=== PATIENT | male | born 1960 | race Caucasian/White ===

== ENCOUNTER → 2021-04-21 15:19 | Outpatient (BNVA) | payer OTHER, SELFPAY | PROVIDERS: PCP Internal Medicine; Visit Provider Urology | DX: R97.20 Elevated prostate specific antigen [PSA] (principal) ==

== ENCOUNTER 2022-04-10 09:25 | Outpatient (REF) | payer OTHER, SELFPAY ==
[2022-04-10 10:59] LABS: Prostate Specific Antigen 2.76 ng/mL (<0.05-4.0)
== END 2022-04-10 09:26 | disposition home or self-care (01) ==
LOC: HO.LAB 09:25
PROVIDERS: Visit Provider Urology
DX: Z12.5 Encounter for screening for malignant neoplasm of prostate (principal); N13.8 Other obstructive and reflux uropathy; N40.1 Benign prostatic hyperplasia with lower urinary tract symptoms; R97.20 Elevated prostate specific antigen [PSA]
CPT/HCPCS: 36415; 84153

== ENCOUNTER → 2022-04-21 15:28 | Outpatient (BNVA) | payer OTHER, SELFPAY | PROVIDERS: PCP Internal Medicine; Visit Provider Urology | DX: N40.1 Benign prostatic hyperplasia with lower urinary tract symptoms (principal); R33.9 Retention of urine, unspecified; R97.20 Elevated prostate specific antigen [PSA] | CPT/HCPCS: 51798 ==

== ENCOUNTER 2022-12-01 16:15 | Outpatient (REF) | payer OTHER, SELFPAY ==
[2022-12-01 19:04] LABS: Prostate Specific Antigen 3.46 ng/mL (<0.05-4.0)
== END 2022-12-01 16:16 | disposition home or self-care (01) ==
LOC: HO.LAB 16:15
PROVIDERS: Visit Provider Urology
DX: R97.20 Elevated prostate specific antigen [PSA] (principal); Z12.5 Encounter for screening for malignant neoplasm of prostate
CPT/HCPCS: 36415; 84153

== ENCOUNTER → 2022-12-09 08:42 | Outpatient (BNVA) | payer OTHER, SELFPAY | PROVIDERS: PCP Internal Medicine; Visit Provider Urology ==

== ENCOUNTER 2023-02-01 07:12 | Outpatient (REF) | payer OTHER, SELFPAY ==
[2023-02-01 07:44] VITALS: BMI 27.6
[2023-02-01 07:46] VITALS: BP 167/107; PULSE 104; RESP 16; TEMP 36.6; O2SAT 96
--- NOTE | 2023-02-01 08:19 | W.PM.OPN ---
Operative Note Operative Note Date of Service: 02/01/23 Narrative: Preoperative diagnosis: Elevated PSA Postoperative diagnosis: Elevated PSA Procedure: 1. transrectal ultrasound measurement of prostate 2. transrectal ultrasound-guided pudendal nerve block 3. transrectal ultrasound-guided prostate biopsy 12 core Surgeon: Dr. Sancho Shepard Anesthetic: Local Indications for procedure: Elevated PSA - 3.5 on finasteride Procedure: After informed consent was verified, the patient was brought into the procedure area and lay left-hand side down on the table. Patient identity confirmed. Perioperative antibiotics confirmed. Safety pause time out performed. CHRISTIANE performed to dilate rectal sphincter Iodine 10cc with Gel was placed per rectum Ultrasound probe was placed per rectum The prostate was measured in 3 dimensions Total volume equals 30 gm No cystic structures were noted Calcifications were noted at the surgical margin The prostate was otherwise homogeneous in nature An ultrasound-guided pudendal nerve block was performed using 10 cc of 1% lidocaine. 8 cc was placed at the base and 2 cc of the apex. A 12 core biopsy was performed with 6 cores each side. Two cores were taken at the apex, mid and base. Cores were spaced between lateral and medial. He tolerated the procedure well. Was able to ambulate to bathroom after 5 minutes. Printed instructions regarding antibiotic use and common side effects such as low-grade temperature, potential infection and bleeding were given Pathology: 12 core prostate biopsy.
[2023-02-01 08:23] VITALS: BP 139/80; PULSE 74; RESP 16; O2SAT 98
== END 2023-02-01 07:13 | disposition home or self-care (01) ==
LOC: HO.MS 07:12
PROVIDERS: Visit Provider Urology
PROC: (CPT 55700; principal; 2023-02-01 08:00)
DX: C61 Malignant neoplasm of prostate (principal); R97.20 Elevated prostate specific antigen [PSA]
CPT/HCPCS: 55700; 76942; 88305; 88344

== ENCOUNTER → 2023-02-01 07:12 | Outpatient (BNV) | payer OTHER, SELFPAY | PROVIDERS: Visit Provider Urology | DX: R97.20 Elevated prostate specific antigen [PSA] (principal) | CPT/HCPCS: 76872; 76942 ==

== ENCOUNTER 2023-02-15 13:50 | Outpatient (AMB) | payer OTHER, SELFPAY ==
--- NOTE | 2023-02-15 13:52 | MHC.OFFVIS ---
Intake Intake Visit Reasons: Biopsy results Allergies No Known Allergies Allergy (Verified 12/09/22 09:03) Medication List - Last Reconciled 02/15/23 by Sancho Shepard MD finasteride 5 mg PO DAILY 90 days levofloxacin 500 mg PO daily 3 days lisinopril 5 mg PO DAILY pravastatin 20 mg PO DAILY HPI HPI Comments History of Present Illness Details Bridger HESS is a very pleasant male. He is a patient of Dr. Spencer. He is seen today for the following urologic conditions. - elevated PSA - lower urinary tract symptoms Telemedicine Evaluation 15 min Consultation [employer] Maisha Video attempted Discussed results Trace of prostate cancer Plan for deferred therapy 3 month follow-up PSA and MRI Adenocarcinoma, acinar type Histologic grade: Nick score: 3+3=6 Tumor quantitation: Number cores positive:1 Total number of cores: 12 % of tissue involved:<5% of needle core Periprostatic fat inv.:Not identified Seminal vesicle inv.: Not identified Perineural inv.: Not identified LVI:Not identified Elevated PSA/Abnormal CHRISTIANE:?Improvement in urinary symptoms. Less weak stream less nocturia. ?He presents for? further evaluation of elevated PSA.?Current management is finasteride ?Laboratory investigations include 01/09 3.6 ? 01/10 4.7, 05/12 2.5, 04/14 2.4, 04/15 2.8, 12/14 3.5 ? Individualized Prostate Cancer Risk Calculator 5-10% high risk, Discussion regarding TRUS biopsy performed, Discussed use of 5AR to help differentiate prostate cancer from benign disease. He would like to try this and understands the small risk associated with a delay in diagnosis.?Symptoms include 02/09 , incomplete emptying, weak stream, nocturia, x 2, and are worsening.?Overall symptoms are mild.?Therapeutic plan will be review in 12 months [facility] Medical History Elevated PSA Hyperlipidemia OA (osteoarthritis) Weak urinary stream Surgical History History of surgery Review of Systems Const All systems reviewed & are unremarkable except as noted in HPI and below Reports no additional complaints Resp Reports no additional complaints GI Reports no additional complaints Reports as per HPI Musc Reports no additional complaints Physical Exam Telemedicine evaluation Appropriate responses Regular breathing rate and rhythm HEENT Head: Yes normal to inspection Ears: hearing grossly normal bilaterally Eyes General: appearance normal, both eyes and all related structures Neck Neck: Yes normal visual inspection Chest Chest palpation & inspection: normal inspection of the chest Resp Effort & Inspection: normal respiratory effort and able to speak in complete sentences Assessment & Plan Assessment & Plan (1) Prostate cancer: Code(s): C61 - Malignant neoplasm of prostate Plan Three month follow-up Orders: Orders Blood Urea Nitrogen 3 Months C61 - Malignant neoplasm of prostate Creatinine 3 Months C61 - Malignant neoplasm of prostate Prostate Specific Antigen 3 Months C61 - Malignant neoplasm of prostate MR pelvis wo/w con 3 Months C61 - Malignant neoplasm of prostate Patient Instructions: Imaging studies, laboratory and physical exam results were discussed and reviewed in detail. No major barriers to patient understanding were identified. An opportunity to ask questions regarding the treatment plan was provided. All questions were answered. The patient expressed understanding and agreement with the above treatment plan. The patient is aware they should contact our office by phone for worsening of their current condition or the appearance of new urologic symptoms. Compliance is encouraged with any medications and followup testing that is ordered. It is a privilege to participate in the urologic care of your patient. If you have any questions or concerns regarding treatment for the above conditions, or other urologic issues, please do not hesitate to contact me. The office telephone contact is [phone]. This note is constructed using voice recognition software. While every effort has been made to ensure accuracy color receiver errors may have been included. Yours sincerely, Dr Sancho Shepard MD, [facility] - Urology Providers of Expert, Compassionate Care for the Genitourinary System Telehealth Telehealth Location of provider rendering services: practice address Location of patient: address on file Patient Identification confirmed using: Name, : Yes Telehealth method: video Patient verbally consented to treatment: Yes Patient verbally consented to billing insurance company: Yes Patient informed of any privacy concerns related to visit: Yes Coding Level of Care Code Tele Est Pt Level 4 (95595) Diagnoses Prostate cancer C61
== END 2023-02-15 14:10 | disposition home or self-care (01) ==
LOC: HO.HUSH 13:51
PROVIDERS: Visit Provider Urology
DX: C61 Malignant neoplasm of prostate (principal)
CPT/HCPCS: 99214

== ENCOUNTER → 2023-02-15 13:50 | Outpatient (BNVA) | payer OTHER, SELFPAY | PROVIDERS: Visit Provider Urology ==

== ENCOUNTER 2023-04-30 08:43 | Outpatient (REF) | payer OTHER, SELFPAY | END 2023-04-30 08:44 | disposition home or self-care (01) | LOC: HO.LAB 08:43 | PROVIDERS: Visit Provider Urology | DX: C61 Malignant neoplasm of prostate (principal); Z12.5 Encounter for screening for malignant neoplasm of prostate | CPT/HCPCS: 36415; 82565; 84153; 84520 ==

== ENCOUNTER 2023-05-12 08:54 | Outpatient (AMB) | payer OTHER, SELFPAY ==
--- NOTE | 2023-05-12 09:20 | MHC.OFFVIS ---
Intake Intake Visit Reasons: 3m/PSA/MRI(set) Intake Note: Patient is Present for Follow Up PSA/MRI Urology Medication: Finasteride (Patient is needing a refill) Antibiotic Allergies: None Blood Thinners: None Pharmacy: [facility] Allergies No Known Allergies Allergy (Verified 05/12/23 09:22) HPI HPI Comments History of Present Illness Details Bridger HESS is a very pleasant male. He is a patient of Dr. Spencer. He is seen today for the following urologic conditions. - elevated PSA - lower urinary tract symptoms Low volume prostate cancer PSA continuing to rise through finasteride Plan for prostate MRI with genetic on biopsy Discussed options for therapy which will include robotic prostatectomy 05/16 4.3 Prostate Cancer - 01/2023 - low volume, Grade Group 1 Initial PSA 3.5 on finasteride TRUS volume - 30gm pT1c Adenocarcinoma, acinar type Histologic grade: Oakwood score: 3+3=6 Tumor quantitation: Number cores positive:1 Total number of cores: 12 % of tissue involved:<5% of needle core Periprostatic fat inv.:Not identified Seminal vesicle inv.: Not identified Perineural inv.: Not identified LVI:Not identified Elevated PSA/Abnormal CHRISTIANE:?Improvement in urinary symptoms. Less weak stream less nocturia. ?He presents for? further evaluation of elevated PSA.?Current management is finasteride ?Laboratory investigations include 01/09 3.6 ? 01/10 4.7, 05/12 2.5, 04/14 2.4, 04/15 2.8, 12/14 3.5 ? Individualized Prostate Cancer Risk Calculator 5-10% high risk, Discussion regarding TRUS biopsy performed, Discussed use of 5AR to help differentiate prostate cancer from benign disease. He would like to try this and understands the small risk associated with a delay in diagnosis.?Symptoms include 02/09 , incomplete emptying, weak stream, nocturia, x 2, and are worsening.?Overall symptoms are mild PFSH Medical History OA (osteoarthritis) Hyperlipidemia Weak urinary stream Elevated PSA Surgical History History of surgery Review of Systems Const Denies chills and Denies fever(s) Card Reports no additional complaints and Denies syncope Resp Denies cough GI Denies abdominal pain and Denies heartburn Reports as per HPI and Denies change in libido Neuro Denies syncope Psych Denies change in libido Endo Denies change in libido Physical Exam Const General: cooperative, healthy appearing, comfortable and no acute distress Orientation/consciousness: patient oriented x3 HEENT Face and sinus: Yes normal facial exam Mouth: moist mucous membranes Neck Neck: Yes normal visual inspection, Yes full ROM and Yes trachea midline Chest Chest palpation & inspection: normal inspection of the chest Resp Effort & Inspection: normal respiratory effort, able to speak in complete sentences and no respiratory distress GI Inspection: Yes normal to inspection Back/Spine/Pelvis Cervical Spine: normal cervical lordosis Thoracic/Lumbar Spine: thoracic and lumbar spine normal to inspection Skin General skin exam: no rashes or lesions noted Neuro General: patient oriented x3, gait normal, tone normal and moves all extremities Extrem General: Yes normal to inspection and Yes capillary refill normal Assessment & Plan Assessment & Plan (1) Prostate cancer: Code(s): C61 - Malignant neoplasm of prostate Plan Prostate MRI Genetics on biopsy sample Patient Instructions: Imaging studies, laboratory and physical exam results were discussed and reviewed in detail. No major barriers to patient understanding were identified. An opportunity to ask questions regarding the treatment plan was provided. All questions were answered. The patient expressed understanding and agreement with the above treatment plan. The patient is aware they should contact our office by phone for worsening of their current condition or the appearance of new urologic symptoms. Compliance is encouraged with any medications and followup testing that is ordered. It is a privilege to participate in the urologic care of your patient. If you have any questions or concerns regarding treatment for the above conditions, or other urologic issues, please do not hesitate to contact me. The office telephone contact is [phone]. This note is constructed using voice recognition software. While every effort has been made to ensure accuracy mathematics department chair errors may have been included. Yours sincerely, Dr Sancho Shepard MD, [facility] - Urology Providers of Expert, Compassionate Care for the Genitourinary System Coding Level of Care Code Est Pt Level 3 (55590) Diagnoses Prostate cancer C61
== END 2023-05-12 09:45 | disposition home or self-care (01) ==
PROVIDERS: Visit Provider Urology
DX: C61 Malignant neoplasm of prostate (principal)
CPT/HCPCS: 99213

== ENCOUNTER → 2023-05-12 08:54 | Outpatient (BNVA) | payer OTHER, SELFPAY | PROVIDERS: Visit Provider Urology ==

== ENCOUNTER 2023-06-23 12:09 | Outpatient (AMB) | payer OTHER, SELFPAY ==
--- NOTE | 2023-06-23 12:10 | A.OFFVIS_ITS ---
Intake Intake Visit Reasons: Prolaris/Review Biopsy Results Intake Note: Patient is present for Telephone Review Biopsy Results Allergies No Known Allergies Allergy (Verified 05/12/23 09:22) HPI HPI Comments History of Present Illness Details Bridger HESS is a very pleasant male. He is a patient of Dr. Spencer. He is seen today for the following urologic conditions. - elevated PSA - lower urinary tract symptoms Telemedicine Evaluation 15 min Consultation [employer] Maisha Video attempted Discussed Prolaris results Confirm surveillence as appropriate management Four month follow-up PSA 05/16 4.3 Prostate Cancer - 01/2023 - low volume, Grade Group 1 Initial PSA 3.5 on finasteride TRUS volume - 30gm pT1c Adenocarcinoma, acinar type Histologic grade: Roscoe score: 3+3=6 Tumor quantitation: Number cores positive:1 Total number of cores: 12 % of tissue involved:<5% of needle core Periprostatic fat inv.:Not identified Seminal vesicle inv.: Not identified Perineural inv.: Not identified LVI:Not identified Staging and genetics Prolaris - confirm ultralow risk, 10 yr DM 1.3%, 10 yr MD 0.4% Elevated PSA/Abnormal CHRISTIANE:?Improvement in urinary symptoms. Less weak stream less nocturia. ?He presents for? further evaluation of elevated PSA.?Current management is finasteride ?Laboratory investigations include 01/09 3.6 ? 01/10 4.7, 05/12 2.5, 04/14 2.4, 04/15 2.8, 12/14 3.5 ? Individualized Prostate Cancer Risk Calculator 5-10% high risk, Discussion regarding TRUS biopsy performed, Discussed use of 5AR to help differentiate prostate cancer from benign disease. He would like to try this and understands the small risk associated with a delay in diagnosis.?Symptoms include 02/09 , incomplete emptying, weak stream, nocturia, x 2, and are worsening.?Overall symptoms are mild PFSH Medical History OA (osteoarthritis) Hyperlipidemia Weak urinary stream Elevated PSA Surgical History History of surgery Review of Systems Const All systems reviewed & are unremarkable except as noted in HPI and below Reports no additional complaints Resp Reports no additional complaints GI Reports no additional complaints Reports as per HPI Musc Reports no additional complaints Physical Exam Telemedicine evaluation Appropriate responses Regular breathing rate and rhythm HEENT Head: Yes normal to inspection Ears: hearing grossly normal bilaterally Eyes General: appearance normal, both eyes and all related structures Neck Neck: Yes normal visual inspection Chest Chest palpation & inspection: normal inspection of the chest Resp Effort & Inspection: normal respiratory effort and able to speak in complete sentences Assessment & Plan Assessment & Plan (1) Prostate cancer: Code(s): C61 - Malignant neoplasm of prostate Plan 4m f/u PSA Orders: Orders Prostate Specific Antigen 4 Months C61 - Malignant neoplasm of prostate Patient Instructions: Imaging studies, laboratory and physical exam results were discussed and reviewed in detail. No major barriers to patient understanding were identified. An opportunity to ask questions regarding the treatment plan was provided. All questions were answered. The patient expressed understanding and agreement with the above treatment plan. The patient is aware they should contact our office by phone for worsening of their current condition or the appearance of new urologic symptoms. Compliance is encouraged with any medications and followup testing that is ordered. It is a privilege to participate in the urologic care of your patient. If you have any questions or concerns regarding treatment for the above conditions, or other urologic issues, please do not hesitate to contact me. The office telephone contact is [phone]. This note is constructed using voice recognition software. While every effort has been made to ensure accuracy personnel quality assurance auditor errors may have been included. Yours sincerely, Dr Sancho Shepard MD, [facility] - Urology Providers of Expert, Compassionate Care for the Genitourinary System Telehealth Telehealth Location of provider rendering services: practice address Location of patient: address on file Patient Identification confirmed using: Name, : Yes Telehealth method: video Patient verbally consented to treatment: Yes Patient verbally consented to billing insurance company: Yes Patient informed of any privacy concerns related to visit: Yes Coding Level of Care Code Tele Est Pt Level 3 (41118) Diagnoses Prostate cancer C61
== END 2023-06-23 14:20 | disposition home or self-care (01) ==
LOC: HO.HUSH 12:09
PROVIDERS: Visit Provider Urology
DX: C61 Malignant neoplasm of prostate (principal)
CPT/HCPCS: 99213

== ENCOUNTER → 2023-06-23 12:09 | Outpatient (BNVA) | payer OTHER, SELFPAY | PROVIDERS: Visit Provider Urology ==

== ENCOUNTER 2023-10-22 08:53 | Outpatient (REF) | payer OTHER, SELFPAY ==
[2023-10-22 10:12] LABS: Prostate Specific Antigen 7.09 ng/mL (<0.05-4.0)
== END 2023-10-22 08:54 | disposition home or self-care (01) ==
LOC: HO.LAB 08:53
PROVIDERS: Visit Provider Urology
DX: Z12.5 Encounter for screening for malignant neoplasm of prostate (principal); C61 Malignant neoplasm of prostate
CPT/HCPCS: 36415; 84153

== ENCOUNTER 2023-10-27 11:12 | Outpatient (AMB) | payer OTHER, SELFPAY ==
--- NOTE | 2023-10-27 11:42 | A.OFFVIS_ITS ---
Intake Intake Visit Reasons: 4M PSA(set)Confirmed Intake Note: Patient is Present for Follow Up Urology Medication: Finasteride Antibiotic Allergies:None Blood Thinners: None Allergies No Known Allergies Allergy (Verified 10/27/23 11:43) HPI HPI Comments History of Present Illness Details Bridger HESS is a very pleasant male. He is a patient of Dr. Spencer. He is seen today for the following urologic conditions. - elevated PSA - lower urinary tract symptoms PSA has risen since last visit Had stopped using finasteride Will restart Four month follow-up PSA tele 05/16 4.3, 10/15 7.1 Prostate Cancer - 01/2023 - low volume, Grade Group 1 Initial PSA 3.5 on finasteride TRUS volume - 30gm pT1c Adenocarcinoma, acinar type Histologic grade: Nick score: 3+3=6 Tumor quantitation: Number cores positive:1 Total number of cores: 12 % of tissue involved:<5% of needle core Periprostatic fat inv.:Not identified Seminal vesicle inv.: Not identified Perineural inv.: Not identified LVI:Not identified Staging and genetics Prolaris - confirm ultralow risk, 10 yr DM 1.3%, 9 yr MD 0.4% Elevated PSA/Abnormal CHRISTIANE:?Improvement in urinary symptoms. Less weak stream less nocturia. ?He presents for? further evaluation of elevated PSA.?Current management is finasteride ?Laboratory investigations include 01/09 3.6 ? 01/10 4.7, 05/12 2.5, 04/14 2.4, 04/15 2.8, 12/14 3.5 ? Individualized Prostate Cancer Risk Calculator 5-10% high risk, Discussion regarding TRUS biopsy performed, Discussed use of 5AR to help differentiate prostate cancer from benign disease. He would like to try this and understands the small risk associated with a delay in diagnosis.?Symptoms include 02/09 , incomplete emptying, weak stream, nocturia, x 2, and are worsening.?Overall symptoms are mild PFSH Medical History OA (osteoarthritis) Hyperlipidemia Weak urinary stream Elevated PSA Surgical History History of surgery Review of Systems Const Denies chills and Denies fever(s) Card Reports no additional complaints and Denies syncope Resp Denies cough GI Denies abdominal pain and Denies heartburn Reports as per HPI and Denies change in libido Neuro Denies syncope Psych Denies change in libido Endo Denies change in libido Physical Exam Const General: cooperative, healthy appearing, comfortable and no acute distress Orientation/consciousness: patient oriented x3 HEENT Face and sinus: Yes normal facial exam Mouth: moist mucous membranes Neck Neck: Yes normal visual inspection, Yes full ROM and Yes trachea midline Chest Chest palpation & inspection: normal inspection of the chest Resp Effort & Inspection: normal respiratory effort, able to speak in complete sentences and no respiratory distress GI Inspection: Yes normal to inspection Back/Spine/Pelvis Cervical Spine: normal cervical lordosis Thoracic/Lumbar Spine: thoracic and lumbar spine normal to inspection Skin General skin exam: no rashes or lesions noted Neuro General: patient oriented x3, gait normal, tone normal and moves all extremities Extrem General: Yes normal to inspection and Yes capillary refill normal Assessment & Plan Assessment & Plan (1) Prostate cancer: Code(s): C61 - Malignant neoplasm of prostate (2) Incomplete emptying of bladder due to benign prostatic hyperplasia: Code(s): N40.1 - Benign prostatic hyperplasia with lower urinary tract symptoms; R33.9 - Retention of urine, unspecified Plan Four month follow-up PSA Orders: Orders PSA,Total (Free>4and<10) 4 Months C61 - Malignant neoplasm of prostate Patient Instructions: Imaging studies, laboratory and physical exam results were discussed and reviewed in detail. No major barriers to patient understanding were identified. An opportunity to ask questions regarding the treatment plan was provided. All questions were answered. The patient expressed understanding and agreement with the above treatment plan. The patient is aware they should contact our office by phone for worsening of their current condition or the appearance of new urologic symptoms. Compliance is encouraged with any medications and followup testing that is ordered. It is a privilege to participate in the urologic care of your patient. If you have any questions or concerns regarding treatment for the above conditions, or other urologic issues, please do not hesitate to contact me. The office telephone contact is [phone]. This note is constructed using voice recognition software. While every effort has been made to ensure accuracy protective signal installer helper errors may have been included. Yours sincerely, Dr Sancho Shepard MD, [facility] - Urology Providers of Expert, Compassionate Care for the Genitourinary System Coding Level of Care Code Est Pt Level 3 (89471) Diagnoses Prostate cancer C61 Incomplete emptying of bladder due to benign prostatic hyperplasia N40.1; R33.9
== END 2023-10-27 12:19 | disposition home or self-care (01) ==
PROVIDERS: Visit Provider Urology
DX: C61 Malignant neoplasm of prostate (principal); N40.1 Benign prostatic hyperplasia with lower urinary tract symptoms; R33.9 Retention of urine, unspecified
CPT/HCPCS: 99213

== ENCOUNTER → 2023-10-27 11:12 | Outpatient (BNVA) | payer OTHER, SELFPAY | PROVIDERS: Visit Provider Urology ==

== ENCOUNTER 2024-02-18 10:09 | Outpatient (REF) | payer OTHER, SELFPAY ==
[2024-02-18 12:21] LABS: PSA,Total (Free>4and<10) 4.46 ng/mL (0.00-4.00)
[2024-02-21 13:34] LABS: Free Prostate Spec Ag 0.6 ng/mL; Percent Free Prostate Spec Ag 12 % (calc) (>25)
== END 2024-02-18 10:10 | disposition home or self-care (01) ==
LOC: HO.LAB 10:09
PROVIDERS: Visit Provider Urology
DX: C61 Malignant neoplasm of prostate (principal); Z12.5 Encounter for screening for malignant neoplasm of prostate
CPT/HCPCS: 36415; 84153; 84154

== ENCOUNTER 2024-02-23 10:07 | Outpatient (AMB) | payer OTHER, SELFPAY ==
--- NOTE | 2024-02-23 10:08 | A.OFFVIS_ITS ---
Intake Visit Reasons: 4M Follow Up-PSA(Pending) Intake Note: Patient is Present for Telephone Follow Up PSA Urology Med: Finasteride Antibiotic Allergy: None Blood Thinner:None Impregnator Helper Required: No Allergies No Known Allergies Allergy (Verified 02/23/24 10:10) HPI Comments Details: Bridger HESS is a very pleasant male. He is a patient of Dr. pSencer. He is seen today for the following urologic conditions. - elevated PSA - lower urinary tract symptoms Telemedicine Evaluation 15 min Consultation [facility] Maisha Video Good response to restarting finasteride Suggest cycling finasteride 1 month on, 1 month off 6 month follow-up repeat PSA 05/16 4.3, 10/15 7.1, 02/14 4.5 12% Prostate Cancer - 01/2023 - low volume, Grade Group 1 Initial PSA 3.5 on finasteride TRUS volume - 30gm pT1c Adenocarcinoma, acinar type Histologic grade: Nick score: 3+3=6 Tumor quantitation: Number cores positive:1 Total number of cores: 12 % of tissue involved:<5% of needle core Periprostatic fat inv.:Not identified Seminal vesicle inv.: Not identified Perineural inv.: Not identified LVI:Not identified Staging and genetics Prolaris - confirm ultralow risk, 10 yr DM 1.3%, 10 yr MD 0.4% Elevated PSA/Abnormal CHRISTIANE:?Improvement in urinary symptoms. Less weak stream less nocturia. ?He presents for? further evaluation of elevated PSA.?Current management is finasteride ?Laboratory investigations include 01/09 3.6 ? 01/10 4.7, 05/12 2.5, 04/14 2.4, 04/15 2.8, 12/14 3.5 ? Individualized Prostate Cancer Risk Calculator 5-10% high risk, Discussion regarding TRUS biopsy performed, Discussed use of 5AR to help differentiate prostate cancer from benign disease. He would like to try this and understands the small risk associated with a delay in diagnosis.?Symptoms include 02/09 , incomplete emptying, weak stream, nocturia, x 2, and are worsening.?Overall symptoms are mild PFSH Medical History OA (osteoarthritis) Hyperlipidemia Weak urinary stream Elevated PSA Surgical History History of surgery Review of Systems Const All systems reviewed & are unremarkable except as noted in HPI and below Reports no additional complaints Resp Reports no additional complaints GI Reports no additional complaints Reports as per HPI Musc Reports no additional complaints Physical Exam Telemedicine evaluation Appropriate responses Regular breathing rate and rhythm HEENT Head: Yes normal to inspection Ears: hearing grossly normal bilaterally Eyes General: appearance normal, both eyes and all related structures Neck Neck: Yes normal visual inspection Chest Chest palpation & inspection: normal inspection of the chest Resp Effort & Inspection: normal respiratory effort and able to speak in complete sentences Telehealth Telehealth Telehealth Platform: [employer] Location of provider rendering services: practice address Location of patient: address on file Patient Identification confirmed using: Name, : Yes Telehealth method: video Patient verbally consented to treatment: Yes Patient verbally consented to billing insurance company: Yes Patient informed of any privacy concerns related to visit: Yes Minutes spent on Phone/Video with Pt.: 15 Assessment & Plan Assessment & Plan (1) Prostate cancer: Code(s): C61 - Malignant neoplasm of prostate Category: Medical (2) Incomplete emptying of bladder due to benign prostatic hyperplasia: Code(s): N40.1 - Benign prostatic hyperplasia with lower urinary tract symptoms; R33.9 - Retention of urine, unspecified Category: Medical Plan Six month follow-up PSA Orders: Orders PSA,Total (Free>4and<10) 6 Months C61 - Malignant neoplasm of prostate Patient Instructions: Imaging studies, laboratory and physical exam results were discussed and review ed in detail. No major barriers to patient understanding were identified. An opportunity to ask questions regarding the treatment plan was provided. All questions were answered. The patient expressed understanding and agreement with the above treatment plan. The patient is aware they should contact our office by phone for worsening of their current condition or the appearance of new urologic symptoms. Compliance is encouraged with any medications and followup testing that is ordered. It is a privilege to participate in the urologic care of your patient. If you have any questions or concerns regarding treatment for the above conditions, or other urologic issues, please do not hesitate to contact me. The office telephone contact is [phone]. This note is constructed using voice recognition software. While every effort has been made to ensure accuracy materials and corrosion engineer errors may have been included. Yours sincerely, Dr Sancho Shepard MD, FEMI [facility] - Urology Providers of Expert, Compassionate Care for the Genitourinary System Coding Level of Care Code Tele Est Pt Level 3 (86688) Diagnoses Prostate cancer C61 Incomplete emptying of bladder due to benign prostatic hyperplasia N40.1; R33.9
== END 2024-02-23 10:38 | disposition home or self-care (01) ==
LOC: HO.HUSH 10:07
PROVIDERS: Visit Provider Urology
DX: C61 Malignant neoplasm of prostate (principal); N40.1 Benign prostatic hyperplasia with lower urinary tract symptoms; R33.9 Retention of urine, unspecified
CPT/HCPCS: 99213

== ENCOUNTER → 2024-02-23 10:07 | Outpatient (BNVA) | payer OTHER, SELFPAY | PROVIDERS: Visit Provider Urology ==